=== PATIENT | male | born 1955 | race Caucasian/White ===

== ENCOUNTER → 2016-09-28 | Outpatient (CLI) | payer MEDICARE, OTHER ==
--- NOTE | 2016-09-28 11:07 | KCIC ---
PROCEDURE MR of the right shoulder HISTORY Right shoulder pain. Injury years ago. COMPARISON None TECHNIQUE Standard noncontrast images are obtained. FINDINGS Mild degenerative changes at the acromioclavicular joint. Tendinosis signal with mild thickening of the rotator cuff. Partial thickness undersurface tear of the rotator cuff at the supraspinatus-infra spinatus tendon confluence. This is at least 2/3 deep. Measures about 15 mm AP diameter. No complete through and through rupture. No significant subdeltoid bursal fluid. No significant glenohumeral joint effusion. Tear of the superior and posterior labrum. At least mild glenohumeral joint chondromalacia. Biceps tendon appears intact. No bone lesion or acute fracture. 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 IMPRESSION 1. Small undersurface partial-thickness tear of the rotator cuff at the supraspinatus-infraspinatus tendon confluence. 2. Posterior and superior labral tear. Electronically signed by: Eagle Nelson MD (Sep 28, 2016 11:05:56)
== END | disposition home or self-care (01) ==
LOC: KCIC MRI 09:18
PROVIDERS: ATTEND Family Medicine
DX: M75.101 Unspecified rotator cuff tear or rupture of right shoulder, not specified as traumatic (principal); S43.431A Superior glenoid labrum lesion of right shoulder, initial encounter
CPT/HCPCS: 73221